=== PATIENT | male | born 1995 | race Caucasian/White ===

== ENCOUNTER 2016-11-11 11:57 | Inpatient (IN) | payer OTHER ==
[2016-11-11 14:23] LABS: HEMOGLOBIN 12.8 gm/dl (14.0-17.5); RED BLOOD COUNT 4.33 M/UL (4.20-5.50); WHITE BLOOD COUNT 12.7 K/UL (4.5-11.0)
[2016-11-11 14:41] LABS: BUN/CREATININE RATIO 13 (0-10)
[2016-11-12 04:42] LABS: HEMOGLOBIN 11.5 gm/dl (14.0-17.5); RED BLOOD COUNT 3.98 M/UL (4.20-5.50)
[2016-11-12 05:00] LABS: BUN/CREATININE RATIO 10 (0-10)
[2016-11-13 12:00] LABS: HEMOGLOBIN 10.4 gm/dl (14.0-17.5); RED BLOOD COUNT 3.59 M/UL (4.20-5.50)
[2016-11-13 12:18] LABS: BUN/CREATININE RATIO 8 (0-10)
[2016-11-14 06:41] LABS: HEMOGLOBIN 10.7 gm/dl (14.0-17.5); RED BLOOD COUNT 3.73 M/UL (4.20-5.50)
[2016-11-14 06:48] LABS: WHITE BLOOD COUNT 5.9 K/UL (4.5-11.0)
[2016-11-14 06:54] LABS: BUN/CREATININE RATIO 10 (0-10)
[2016-11-16 05:52] LABS: HEMOGLOBIN 11.1 gm/dl (14.0-17.5); RED BLOOD COUNT 3.89 M/UL (4.20-5.50); WHITE BLOOD COUNT 5.5 K/UL (4.5-11.0)
[2016-11-16 06:12] LABS: BUN/CREATININE RATIO 8 (0-10)
[2016-11-16] MEDS ORDERED: FLAGYL500 MG PO (21:52)
[2016-11-16] MEDS ORDERED: CIPRO500 MG PO (21:52)
== END 2016-11-17 05:50 | disposition home or self-care (01) | DRG 872 ==
LOC: ER1 11:57 → MED SURG 4 22:15 → ZEROF 22:15 → MED SURG 4 11-12
PROVIDERS: Physician Assistant Medical; ADMIT Internal Medicine
DX: A41.9 Sepsis, unspecified organism (principal); K50.00 Crohn's disease of small intestine without complications; E87.6 Hypokalemia; D64.9 Anemia, unspecified; F17.210 Nicotine dependence, cigarettes, uncomplicated; Z87.442 Personal history of urinary calculi; Z91.018 Allergy to other foods; Z80.3 Family history of malignant neoplasm of breast; Z80.1 Family history of malignant neoplasm of trachea, bronchus and lung; Z80.0 Family history of malignant neoplasm of digestive organs
CPT/HCPCS: 36415; 72192; 74000; 80048; 80053; 81001; 82150; 83605; 83690; 83735; 85025; 85027; 86140; 87040; 87086; 96374; 96375; 96376; 99285; C9113; G0378; J0696; J2270; J2405; J7030; J7050; Q9962